=== PATIENT | female | born 1965 | race Caucasian/White ===

== ENCOUNTER → 2018-07-18 | Outpatient (REF) | payer BC ==
[2018-07-18 12:04] LABS: BASO # 0.1 10^3/uL (0.0-0.2); BASO % 0.6 % (0.0-1.0); EOS # 0.3 10^3/uL (0.0-0.50); EOS % 3.1 % (0.0-3.0); HEMOGLOBIN 12.2 g/dl (12.0-15.5); LYMPH # 2.6 10^3/uL (1.5-4.5); LYMPH % 25.5 % (24.0-44.0); MEAN CORPUSCULAR HEMOGLOBIN 28.2 pg (27.0-33.0); MEAN CORPUSCULAR VOLUME 85.5 fl (80.0-96.0); MONO # 0.8 10^3/uL (0.0-0.8); MONO % 7.6 % (0.0-5.0); NEUTROPHILS # 6.4 10^3/uL (1.8-7.7); NEUTROPHILS % 62.8 % (36.0-66.0); PLATELET COUNT, AUTOMATED 373 10^3/uL (150-450); RED BLOOD COUNT 4.33 10^6/uL (4.00-5.40); WHITE BLOOD COUNT 10.1 10^3/uL (4.0-10.0)
[2018-07-18 12:14] LABS: ALBUMIN 3.8 GM/DL (3.2-5.2); ALT/SGPT 21 U/L (12-78); BILIRUBIN,TOTAL 0.3 MG/DL (0.2-1.0); BLOOD UREA NITROGEN 14 MG/DL (7-18); CALCIUM LEVEL 9.3 MG/DL (8.5-10.1); CARBON DIOXIDE LEVEL 29 MEQ/L (21-32); CHLORIDE LEVEL 103 MEQ/L (98-107); CHOLESTEROL LEVEL 190 MG/DL (<200); CHOLESTEROL RISK RATIO 2.968 (<5); CREATININE FOR GFR 0.62 MG/DL (0.55-1.30); GLOMERULAR FILTRATION RATE > 60.0 (>51); GLUCOSE, FASTING 92 MG/DL (70-100); HDL CHOLESTEROL 64 MG/DL (>40); LDL CHOLESTEROL 100 MG/DL (<100); NON-HDL-C 126 MG/DL; POTASSIUM SERUM 4.7 MEQ/L (3.5-5.1); SODIUM LEVEL 138 MEQ/L (136-145); TOTAL PROTEIN 7.2 GM/DL (6.4-8.2); TRIGLYCERIDES LEVEL 129 MG/DL (<150)
[2018-07-18 12:20] LABS: TOTAL 25(OH) VITAMIN D 13.3 NG/ML (30.0-100.0)
== END ==
LOC: M SFHCLERA 09:19
PROVIDERS: ATTEND Nurse Practitioner Family
DX: Z13.220 Encounter for screening for lipoid disorders (principal); Z13.21 Encounter for screening for nutritional disorder; R53.82 Chronic fatigue, unspecified

== ENCOUNTER → 2019-03-12 | Outpatient (REF) | payer BC | LOC: M SFHCLERA 08:35 | PROVIDERS: ATTEND Nurse Practitioner Family | DX: E55.9 Vitamin D deficiency, unspecified (principal) ==

== ENCOUNTER → 2019-12-20 | Outpatient (CLI) | payer BC ==
[~2019-12-20] MED LIST: ALBU83IN NEB; BREO1INH INH; MELO15TA28 PO; PROAAER10 INH; PROZ20CA11 PO; TIZA2CAP PO
== END ==
LOC: M LABSMTC 11:30
PROVIDERS: ATTEND Anesthesiology
DX: Z01.812 Encounter for preprocedural laboratory examination (principal); Z20.828 Contact with and (suspected) exposure to other viral communicable diseases
CPT/HCPCS: C9803; U0003

== ENCOUNTER → 2019-12-21 | Outpatient (CLI) | payer BC ==
--- NOTE | 2020-01-08 11:54 | ECGEPIP ---
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
== END ==
LOC: M EKG 11:36
PROVIDERS: ATTEND Anesthesiology
DX: F41.9 Anxiety disorder, unspecified (principal)

== ENCOUNTER 2019-12-25 11:18 | Day surgery (SDC) | payer BC ==
[~2019-12-25] VITALS: Ht 162.6 cm; Wt 120.7 kg
[~2019-12-25 11:18] MED LIST changes: +LIDOCAINE 2% 100MG/5ML SDV (FOR ANES.) As Ordered ONE; +MIDAZOLAM INJ 2MG/2ML VIAL (J2250 PER 1MG) As Ordered ONE; +ROCURONIUM BROMIDE 50 MG/5 ML VIAL As Ordered ONE; +fentaNYL 250 MCG/5 ML INJECTION (J3010) As Ordered ONE; +propofoL 200 MG/20 ML VIAL As Ordered ONE
[2019-12-25] MEDS ORDERED: EPINEPHrine INJ 1 MG/ML 1ML AMP ONE (11:19)
[2019-12-25] MEDS ORDERED: dexameTHASONE 10MG/1ML VIAL PRES.FREE (J1100 PER 1MG) ONE (11:19)
[2019-12-25] MEDS ORDERED: ROPIvacaine 0.5% 30ML INJECTION (J2795 PER 1MG) ONE (11:19)
[2019-12-25] MEDS ORDERED: ceFAZolin 2 GM/D5W 50 ML IV BAG (J0690 PER 500MG) As Ordered ONE (12:04)
[2019-12-25] MEDS ORDERED: MIDAZOLAM INJ 2MG/2ML VIAL (J2250 PER 1MG) As Ordered ONE (12:23)
[2019-12-25] MEDS ORDERED: fentaNYL 100 MCG/2 ML INJECTION (J3010) As Ordered ONE (12:23)
[2019-12-25] MEDS: fentaNYL 100 MCG/2 ML INJECTION (J3010) IV SCH ×2 (12:30→12:45)
[2019-12-25] MEDS: MIDAZOLAM INJ 2MG/2ML VIAL (J2250 PER 1MG) IV SCH ×2 (12:30→12:35)
[2019-12-25] MEDS ORDERED: EPINEPHrine INJ 1 MG/ML 1ML AMP As Ordered ONE (13:31)
[2019-12-25] MEDS ORDERED: dexameTHASONE 4 MG/ML 1ML VIAL (J1100 PER 1MG) As Ordered ONE ×2 (14:00→14:39)
[2019-12-25] MEDS ORDERED: ONDANSETRON 4MG/2ML VIAL As Ordered ONE ×2 (14:00→14:39)
[2019-12-25] MEDS ORDERED: ceFAZolin 1GM VIAL (J0690 PER 500MG) As Ordered ONE (14:11)
[2019-12-25] MEDS ORDERED: KETOROLAC 60MG 2ML VIAL As Ordered ONE (14:38)
[2019-12-25] MEDS ORDERED: SUGAMMADEX SODIUM 500 MG/5 ML VIAL (BRIDION) As Ordered ONE (15:41)
[2019-12-25] MEDS ORDERED: oxyCODONE 5MG TAB PO PRN (16:30)
[2019-12-25] MEDS ORDERED: ONDANSETRON 4MG/2ML VIAL IV PRN (16:30)
[2019-12-25] MEDS ORDERED: fentaNYL 100 MCG/2 ML INJECTION (J3010) IV PRN (16:30)
[2019-12-25] MEDS ORDERED: LR 1,000 ML IV SCH (16:30)
[2019-12-25] MEDS ORDERED: METOCLOPRAMIDE INJ 10MG/2ML VIAL (J2765 PER 1) IV PRN (16:30)
[2019-12-25] MEDS: MEPERIDINE INJ 25 MG/ML VIAL (J2175) IV PRN ×2 (16:36→16:49)
[2019-12-25 18:20] VITALS: BP 124/68
--- NOTE | 2020-01-14 09:41 | RO ---
DATE OF OPERATION: 12/25/2019 PREOPERATIVE DIAGNOSES: * Left shoulder impingement. * Left shoulder partial rotator cuff tear. * Left shoulder glenohumeral arthritis. * Left shoulder long head biceps tendonitis. * Left shoulder acromioclavicular (AC) joint arthritis. POSTOPERATIVE DIAGNOSES: * Left shoulder stage 4 glenohumeral arthritis. * Left shoulder impingement. * Left shoulder long head biceps partial tear. * Left shoulder acromioclavicular (AC) joint arthritis. * Left shoulder partial rotator cuff tear. * Loose bodies. PROCEDURES: * Left shoulder arthroscopy with lysis of adhesions, chondroplasty, and labral debridement. * Left shoulder manipulation under anesthesia. * Left shoulder arthroscopic rotator cuff debridement. * Left shoulder arthroscopic subacromial decompression including acromioplasty. * Left shoulder arthroscopic distal clavicle excision. * Left shoulder open subpectoral biceps tenodesis. SURGEON: Juan De Luna M.D. ASSISTANT DISTRIBUTION MANAGER: MAU Choi ANESTHESIA: General with preoperative nerve block. IV FLUIDS: Lactated ringers. ESTIMATED BLOOD LOSS: 10 mL. IMPLANTS: Arthrex proximal biceps button x1. CLOSURE: Monocryl and nylon. DESCRIPTION OF PROCEDURE: Patient identified in the preoperative holding area where the left shoulder was marked. She had interscalene nerve block by anesthesia. She was brought to the operating room, placed supine on a well- padded OR table and a reina bag. General anesthesia induced. She received appropriate intravenous (IV) antibiotics within one hour of incision. Examination under anesthesia revealed 120 degrees of forward flexion, 30 of external rotation with her arm at her side, 40 of external rotation with her shoulder at 90. Time-out was then performed per hospital protocol. A then performed a manipulation under anesthesia. Steady downward pressure on the scapula and then passive forward flexion to the upper arm starting with forward flexion and two small pops were felt. The arm was then brought up into abduction. I then performed some adduction followed by repeat forward flexion. I then performed external rotation with her shoulder at 90 degrees. At this point, I was now able to get her up to almost 170 degrees of forward flexion, 40 of external rotation with her arm at her side, and 70 of external rotation with her shoulder at 90. She was then placed into the right side down lateral decubitus position with an axillary roll and all bony prominences were well padded. Bilateral Venodyne boots for deep vein thrombosis (DVT) prophylaxis. She was secured to the OR table. The left arm was then placed into the Arthrex STaR sleeve lateral decubitus traction allen with 10 pounds of traction. The left shoulder was prepped and draped in a normal sterile fashion with ChloraPrep. Prior to incision, a time-out was repeated. Grace Medina was present for the entire procedure and participated in all essential portions of the procedure. This included patient positioning and draping, holding the arthroscope, holding retractors which was crucial given the size of the patient while adjusting the skeletal system for retracting to expose the bicipital groove. She also assisted with whipstitching the biceps tendon, loading the button, performing the wound closure, applying the dressing, and sling. Standard posterior viewing portal was made with an 11-blade and 30-degree arthroscope was introduced into the joint. Diagnostic arthroscopy unfortunately revealed mixed areas of grade 3 and 4 chondromalacia with predominantly grade 4. There was a large 360-degree labral tear. There were several small loose bodies in the anterior axillary pouch. Long head of the biceps appeared to have some interstitial tearing. Superior labrum was torn. Subscapularis was intact. There was tendinopathy of the supraspinatus, but only low-grade articular-sided tearing. An anterior working portal was established through the rotator interval. Triple Arthrex cannula placed. Long head of the biceps was palpated with the probe and again, this confirmed interstitial and partial tearing. The meniscal biter was used to release the long head of the biceps off the superior labrum. I then performed a 360-degree labral debridement. The grasper was used to remove two small loose bodies from the anterior gutter. Chondroplasty of the humeral head and glenoid with the shaver. I then performed a debridement of the partial articular rotator cuff tear. I would estimate the tearing to be well less than 20% probably more along the lines of a 10-15% partial articular tear. I then performed a rotator interval release with the radiofrequency cautery and then the biter was used to release the upper half of the middle glenohumeral ligament to improve external rotation. The shoulder was irrigated and drained. I then proceeded with an open biceps tenodesis. Incision made with a 15-blade just lateral to the axilla. Dissection through subcutaneous tissues with Bovee cautery and Metzenbaum scissors. Deep fascia was carefully opened. Long head of the biceps was identified and dissected out with the right angle clamp. The Arthrex proximal biceps tenodesis kit was opened. A running locking whipstitch placed with a FiberLoop. Excess tendon trimmed and sent to pathology. Sutures loaded through the button per routine. Retractors were positioned to expose the bicipital groove. The spade tip drill bit was used to create a unicortical drill hole within the bicipital groove. Irrigation used to remove bony debris. Button was passed through the drill hole on its intake coordinator. Sutures were toggled to fit the button nicely. Curve free needle was used to pass one limb of suture back through the tendon. Knots were tied by hand to lock the construct in place. This nicely restored the resting tension of the biceps. Shoulder was re-irrigated. Deep fascia was closed with 2-0 Vicryl and then a 2-0 Vicryl and a running Monocryl. At the end of the case Steri-Strips were placed. The arthroscope was placed into the subacromial space where there was dense bursitis. Through a lateral working portal, I performed a bursectomy. There was a moderate subacromial spur so a formal acromioplasty was performed with the louann turning this into a type 1 morphology. There was no significant bursal sided rotator cuff tearing. The cuff was carefully palpated with a switching stick. We then proceeded with an arthroscopic distal clavicle excision through the anterior working portal. Soft tissue was cleared out of the joint and there was kult-hz-schy contact. The louann was then used to remove approximately 5-6 mm of the distal clavicle. The scope was intermittently placed through the anterior portal to get a direct view, to ensure no posterior or superior bone remained. The shoulder was then irrigated and drained. Port was closed nylon suture. Bulky sterile dressing was applied. She was carefully placed into her sling, then extubated, and transferred to the post anesthesia care unit (PACU) in stable condition. All counts correct x2. MTDD
== END 2019-12-25 18:22 | disposition home or self-care (01) ==
LOC: M SDC 11:18
PROVIDERS: ATTEND Orthopaedic Surgery
DX: M75.42 Impingement syndrome of left shoulder (principal); M75.22 Bicipital tendinitis, left shoulder; M19.012 Primary osteoarthritis, left shoulder; M75.112 Incomplete rotator cuff tear or rupture of left shoulder, not specified as traumatic; M24.012 Loose body in left shoulder; Z91.040 Latex allergy status
CPT/HCPCS: 23430; 29823; 29824; 29826; 64415; 88304; C1713; J0171; J0690; J1100; J1885; J2175; J2250; J2405; J2795; J3010